=== PATIENT | male | born 1955 | race Caucasian/White ===

== ENCOUNTER → 2017-05-06 | Outpatient (CLI) | payer OTHER ==
[~2017-05-06] MED LIST: ADULT LOW DOSE81 MG PO; BYETTA PEN 11 PENIN1 SUBQ; CARISOPRODOL 3350 MG PO; FARXIGA10 MG PO; FISH OIL 1,0001 EAC5 PO; GLUCOPHAGE500 MG PO; HYDROCHLOROTHIA25 M2 PO; HYTRIN 5 M5 MG/1 CAP PO; JANUVIA100 MG PO; LANTUS100 UNIT/M SUBQ; LISINOPRIL20 MG PO; LOVASTAT20 PO; MOBIC7.5 MG PO; NORVASC 5 MG TAB5 MG PO; PRILOSEC 20 MG20 MG PO; TERAZOSIN PO; UNICOMPLEX M TA1 TA1 PO; VITAMIN D-32000 UNIT PO; VITAMINC500 PO
[2017-05-06 15:16] LABS: ABSOLUTE EOSINOPHILS 0.2 thou/uL (0.0-0.7); ABSOLUTE LYMPHOCYTES 1.4 thou/uL (0.8-5.3); ABSOLUTE MONOCYTES 0.4 thou/uL (0.0-1.2); ABSOLUTE NEUTROPHILS 4.5 thou/uL (1.6-8.1); BASOPHILS 0.4 %; EOSINOPHILS 2.6 %; HEMATOCRIT 41.5 % (42.0-52.0); HEMOGLOBIN 14.6 gm/dL (14.0-18.0); LYMPHOCYTES 21.4 %; MCH 30.9 pg (26.0-34.0); MCHC 35.1 g/dL (28.0-37.0); MCV 88.1 fL (80.0-100.0); MONOCYTES 6.4 %; NUCLEATED RBCS 0 /100WBC; PLATELET COUNT* 183 thou/uL (150-400); POLYS 69.2 %; RDW-CV 13.1 % (10.5-14.5); WBC 6.5 thou/uL (4.0-11.0)
[2017-05-06 15:40] LABS: ALBUMIN 3.8 g/dL (3.4-5.0); CALCIUM 8.8 mg/dL (8.5-10.1); CREATININE 1.6 mg/dL (0.6-1.3); PHOSPHORUS* 3.2 mg/dL (2.5-4.9); POTASSIUM 3.9 mmol/L (3.5-5.1)
[2017-05-06 23:09] LABS: eGFR IF AFRICAN AMERICAN 61 (>59)
[2017-05-07 12:05] LABS: PARATHYROID HORMONE 45 pg/mL (15-65)
== END ==
LOC: M.LAB 14:44
PROVIDERS: Internal Medicine Nephrology
DX: E11.22 Type 2 diabetes mellitus with diabetic chronic kidney disease (principal); N18.2 Chronic kidney disease, stage 2 (mild); N40.1 Benign prostatic hyperplasia with lower urinary tract symptoms

== ENCOUNTER → 2018-06-02 | Outpatient (CLI) | payer OTHER ==
[2018-06-02 14:17] LABS: ABSOLUTE EOSINOPHILS 0.1 thou/uL (0.0-0.7); ABSOLUTE LYMPHOCYTES 1.5 thou/uL (0.8-5.3); ABSOLUTE MONOCYTES 0.4 thou/uL (0.0-1.2); ABSOLUTE NEUTROPHILS 5.2 thou/uL (1.6-8.1); BASOPHILS 0.5 %; HEMATOCRIT 42.6 % (42.0-52.0); HEMOGLOBIN 14.9 gm/dL (14.0-18.0); LYMPHOCYTES 20.9 %; MCV 85.5 fL (80.0-100.0); MONOCYTES 5.5 %; MPV 7.8 fl. (7.2-11.1); NUCLEATED RBCS 0 /100WBC; PLATELET COUNT* 224 thou/uL (150-400); POLYS 71.1 %; RBC 4.98 mil/uL (4.50-6.00); RDW-CV 13.5 % (10.5-14.5); WBC 7.4 thou/uL (4.0-11.0)
[2018-06-02 14:29] LABS: ALBUMIN 3.7 g/dL (3.4-5.0); CALCIUM 9.7 mg/dL (8.5-10.1); CREATININE 1.5 mg/dL (0.6-1.3); PHOSPHORUS* 3.8 mg/dL (2.5-4.9)
[2018-06-02 14:38] LABS: CALCIUM 9.1 mg/dL (8.5-10.1); CREATININE 1.5 mg/dL (0.6-1.3); PHOSPHORUS* 3.8 mg/dL (2.5-4.9)
== END ==
LOC: M.LAB 13:49
PROVIDERS: Internal Medicine Nephrology
DX: I12.9 Hypertensive chronic kidney disease with stage 1 through stage 4 chronic kidney disease, or unspecified chronic kidney disease (principal); E11.22 Type 2 diabetes mellitus with diabetic chronic kidney disease; N18.3 Chronic kidney disease, stage 3 (moderate); E78.5 Hyperlipidemia, unspecified; E78.00 Pure hypercholesterolemia, unspecified; K21.9 Gastro-esophageal reflux disease without esophagitis

== ENCOUNTER → 2019-05-27 | Outpatient (CLI) | payer OTHER ==
[2019-05-27 11:19] LABS: HEMATOCRIT 41.8 % (42.0-52.0); HEMOGLOBIN 14.7 gm/dL (14.0-18.0)
[2019-05-27 11:31] LABS: CREATININE 1.4 mg/dL (0.6-1.3); POTASSIUM 4.3 mmol/L (3.5-5.1)
[2019-05-27 11:34] LABS: CREATININE 1.4 mg/dL (0.6-1.3); PHOSPHORUS* 3.8 mg/dL (2.5-4.9)
== END ==
LOC: M.LAB 10:50
PROVIDERS: Internal Medicine Nephrology
DX: N18.3 Chronic kidney disease, stage 3 (moderate) (principal)